=== PATIENT | male | born 1955 | race Two or more races ===

== ENCOUNTER → 2017-05-23 | Outpatient (REF) | payer MEDICARE, BC ==
[2017-05-23 15:05] LABS: CREATININE FOR GFR 1.37 MG/DL (0.70-1.30); GLOMERULAR FILTRATION RATE 56.4 (>49); POTASSIUM SERUM 4.2 MEQ/L (3.5-5.1)
== END ==
LOC: M SFHCPLAZ 10:46
PROVIDERS: ATTEND Family Medicine
DX: I10 Essential (primary) hypertension (principal); I95.1 Orthostatic hypotension; R41.3 Other amnesia; F32.9 Major depressive disorder, single episode, unspecified; Z79.899 Other long term (current) drug therapy; Z87.891 Personal history of nicotine dependence; Z98.890 Other specified postprocedural states
CPT/HCPCS: 36415; 80048; 80061; 83036; G0463